=== PATIENT | male | born 1995 | race Caucasian/White ===

== ENCOUNTER 2019-03-26 10:28 | Emergency (ER) | payer BC ==
[~2019-03-26] VITALS: Ht 162.6 cm; Wt 77.3 kg
[2019-03-26 11:48] VITALS: BP 136/85
[2019-03-26] MEDS ORDERED: CefTRIAXone 250MG IM Kit w/LIDOcaine IM ONE (12:15)
[2019-03-26] MEDS ORDERED: azithromycin 250mg tablet PO ONE (12:15)
[2019-03-26] MEDS ORDERED: metroNIDAZOLE 500mg tablet PO ONE (12:15)
== END 2019-03-26 12:30 | disposition home or self-care (01) ==
LOC: ER 10:30
DX: A64 Unspecified sexually transmitted disease (principal); B07.0 Plantar wart
CPT/HCPCS: 99281